=== PATIENT | male | born 1965 | race Hispanic/Latino ===

== ENCOUNTER 2017-11-10 21:41 | Inpatient (IN) | payer MEDICARE, MEDICAID ==
[2017-11-10 21:49] VITALS: O2SAT 98
[2017-11-10] MEDS ORDERED: Sodium Chloride 0.9% 1,000 ML IV ONE (22:48)
--- NOTE | 2017-11-10 22:48 | C.PDOC ---
History Of Present Illness 57 year old male, with history of mechanical aortic valve, presents to the ED for psychiatric evaluation. Patient states he has been feeling very anxious, stressed and depressed for the past few days. He reports being unable to eat or sleep properly. Patient was evaluated at [facility] two days ago , but did not stay for further evaluation. Patient was evaluated by his PMD, Dr. Landers, yesterday and today and was advised to present to the ED for evaluation of possible dehydration. Patient denies suicidal/homicidal ideation and drug use at this time. Patient states he has been noncompliant with Warfarin for "months." Time Seen by Provider: 11/10/17 22:27 Chief Complaint (Nursing): Psychiatric Evaluation History Per: Patient History/Exam Limitations: no limitations Onset/Duration Of Symptoms: Days Current Symptoms Are (Timing): Still Present Suicide/Self Injury Attempted (Context): None Modifying Factor(s): None Associated Symptoms: Anxiety, Depression. denies: Suicidal Thoughts, Suicidal Plan Involuntary Hold By: None Recent travel outside of the [place]: No Additional History Per: Patient Past Medical History Reviewed: Historical Data, Nursing Documentation, Vital Signs Vital Signs: Last Vital Signs Temp 98.5 F 11/11/17 01:00 Pulse 85 11/11/17 01:00 Resp 18 11/11/17 02:16 BP 126/79 11/11/17 01:00 Pulse Ox 98 11/11/17 06:50 - Medical History PMH: Denies: Diabetes, Hepatitis, HIV, HTN, Seizures, Sexually Transmitted Disease Surgical History: No Surg Hx Family History: States: Unknown Family Hx - Social History Hx Alcohol Use: No Hx Substance Use: Yes Review Of Systems Psych: Positive for: Anxiety, Depression. Negative for: Suicidal ideation Physical Exam - Physical Exam Appears: Non-toxic, No Acute Distress Skin: Warm, Dry, Other (facial erythema ) Head: Atraumatic, Normacephalic Eye(s): bilateral: Normal Inspection Oral Mucosa: Dry Neck: Supple Chest: Symmetrical, No Deformity, No Tenderness, Other (clicking of mechanical aortic valve noted ) Cardiovascular: Rhythm Regular, No Murmur Respiratory: Normal Breath Sounds, No Rales, No Rhonchi, No Wheezing Gastrointestinal/Abdominal: Soft, No Tenderness, No Guarding, No Rebound Extremity: Normal ROM, Capillary Refill (less than 2 seconds ) Neurological/Psych: Oriented x3, No Normal Speech (rapid, pressured), Normal Cognition ED Course And Treatment - Laboratory Results Result Diagrams: 11/10/17 23:13 11/10/17 23:13 O2 Sat by Pulse Oximetry: 98 (on RA) Pulse Ox Interpretation: Normal Medical Decision Making Medical Decision Making: Progress: Bloodwork, urinalysis ordered and reviewed. Patient evaluated by metal worker. IV Fluids administered. pt is medically stable for psychiatric evaluation. Disposition Discussed With DrVictoria: Kaylen Hawk - Disposition Disposition: HOSPITALIZED Disposition Time: 00:56 Condition: STABLE - POA Present On Arrival: None - Clinical Impression Clinical Impression: Benzodiazepine withdrawal with delirium, Opioid use disorder, severe, dependence - PA / DRUM WORKER / Resident Statement MD/DO has reviewed & agrees with the documentation as recorded. - Scribe Statement The provider has reviewed the documentation as recorded by the Scribe (Melissa Mauricio) All medical record entries made by the Scribe were at my direction and personally dictated by me. I have reviewed the chart and agree that the record accurately reflects my personal performance of the history, physical exam, medical decision making, and the department course for this patient. I have also personally directed, reviewed, and agree with the discharge instructions and disposition.
[2017-11-10 23:17] LABS: BASO # 0.1 K/uL (0.0-0.2); BASO % 1.2 % (0.0-2.0); EOS # 0.2 K/uL (0.0-0.7); EOS % 2.1 % (0.0-4.0); HEMOGLOBIN 14.1 g/dL (12.0-18.0); LYMPH # 3.2 K/uL (1.0-4.3); LYMPH % 41.7 % (20.0-40.0); MEAN CELL VOLUME 85.2 fL (80.0-94.0); MEAN CORPUSCULAR HEMOGLOBIN 28.5 pg (27.0-31.0); MEAN CORPUSCULAR HGB CONC 33.5 g/dL (33.0-37.0); MONO # 0.6 K/uL (0.0-0.8); MONO % 8.4 % (0.0-10.0); NEUT # 3.5 K/uL (1.8-7.0); NEUT % 46.6 % (50.0-75.0); NRBC % 0.1 % (0.0-2.0); RBC 4.94 Mil/uL (4.40-5.90); RED CELL DISTRIBUTION WIDTH 14.7 % (11.5-14.5); WHITE BLOOD COUNT 7.6 K/uL (4.8-10.8)
[2017-11-10 23:18] LABS: URINE BILIRUBIN NEGATIVE (NEGATIVE); URINE BLOOD NEGATIVE (NEGATIVE); URINE CLARITY Clear (Clear); URINE COLOR Yellow (YELLOW); URINE GLUCOSE (UA) NORMAL (Normal); URINE LEUKOCYTE ESTERASE NEG Leu/uL (Negative); URINE NITRATE NEGATIVE (NEGATIVE); URINE PROTEIN NEGATIVE (NEGATIVE)
[2017-11-10 23:28] LABS: ALB/GLOB RATIO 1.2 (1.0-2.1); ALBUMIN 4.5 g/dL (3.5-5.0); ALT/SGPT 26 U/L (21-72); AST/SGOT 27 U/L (17-59); BLOOD UREA NITROGEN 17 mg/dL (9-20); CALCIUM 9.4 mg/dl (8.6-10.4); GFR AFRICAN-AMERICAN > 60; GFR NON-AFRICAN AMERICAN > 60
[2017-11-10 23:33] LABS: BARBITURATES, UR NEGATIVE (NEGATIVE); BENZODIAZEPINES, UR POSITIVE (NEGATIVE); OPIATES, UR NEGATIVE (NEGATIVE); PHENCYCLIDINE, UR NEGATIVE (NEGATIVE)
--- NOTE | 2017-11-11 02:06 | PCM.BM ---
<Kwame Gibson - Last Filed: 11/11/17 02:03> Treatment Plan Problems - Problems identified on initial assessmt DEPRESSION Date Initiated: 11/11/17 Time Initiated: 01:35 Assessment reference: NA Status: Active SUICIDAL IDEATION Date Initiated: 11/11/17 Time Initiated: 01:35 Assessment reference: NA Status: Active SUBSTANCE ABUSE Date Initiated: 11/11/17 Time Initiated: 01:35 Assessment reference: NA Status: Active Treatment assets and liabiliti Patient Assests: adapts well, cooperative, self-reliant, ADL independent, good support system, negotiates basic needs, cognitively intact Patient Liabilities: live alone, financial problems, substance abuse, medical problems, legal issue - Milieu Protocol Maintain good personal hygiene: daily Encourage regular showers, daily Remind patient to perform daily oral care, daily Assist patient to perform ADL's Maintain personal safety: every shift Educate patient to report safety concerns to staff, every shift Monitor environment for contraband/sharps Medication safety: Monitor for expected outcome, potential side effects: every shift, Assess barriers to learning: every shift, Assess readiness for medication education: every shift <Montserrat Dawson - Last Filed: 11/11/17 10:48> Family Contact Family involvement: Famliy/SO not involved - Goals for Treatment Patient goals for treatment: "I need help with my withdrawals." Discharge/Continuing Care - Education Needs Education Needs: Patient Medication, Patient Coping Skills, Patient Placement options, Patient Community resources - Discharge Discharge Criteria: Tolerates medication w/o severe side effects, No longer exhibiting s/s of withdrawal, Reduction of target symptoms Discharge to:: Home - Treatment Team Participation Discussed with Family/SO: No Was Patient/Family/SO present at Treatment Team Meeting: Yes <Kaylen Hawk - Last Filed: 11/11/17 11:31> - Diagnosis (1) Major depressive disorder, recurrent episode, severe Status: Acute Interventions: 11/11/17 11:30 * Assess/adjust medications daily and /or as needed * See patient on an individual basis 7x/week to assess symptoms of depression * Monitor for side effects & effectiveness of medications * (2) Sedative, hypnotic or anxiolytic use disorder, severe, dependence Status: Acute Interventions: 11/11/17 11:30 * Assess 7x/week regarding cravings * Educate regarding risks, benefits, side effects and alternatives of medications * Use Motivational Interviewing for abstinence * Use CBT for relapse prevention * Encourage medication assisted treatment * (3) Opioid use disorder, severe, dependence Status: Acute Interventions: 11/11/17 11:30 * Assess 7x/week regarding severity of withdrawal * Educate regarding risks, benefits, side effects and alternatives of medications * Use Motivational Interviewing for abstinence * Use CBT for relapse prevention * Medication management for withdrawal symptoms * Encourage medication assisted treatment *
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
[2017-11-11] MEDS: Venlafaxine 37.5 mg ER Cap PO SCH (13:00)
[2017-11-12] MEDS: Venlafaxine 37.5 mg ER Cap PO SCH (09:34)
[2017-11-12] MEDS: Hydrocortisone 1% Cream (30 GM) TOP PRN (18:06)
--- NOTE | 2017-11-12 19:59 | PCM.PYCHPN ---
Psychiatric Progress Note - Psychiatric Progress Note Patient seen today, length of contact: 15 minutes Patient Chief Complaint: I'm not feeling good. I'm feeling anxiety and some withdrawal symptoms. Problems Identified/Issues Discussed: Patient seen, chart reviewed, case discussed with the staff. Issues related to illness and treatment were discussed with the patient. Reported compliant with treatment with no adverse affects. Tolerating treatment very well. Better sleep. Patient reported not feeling good. Frequently asking for more methadone and Klonopin. At the time of evaluation, patient was awake alert oriented 3, had no delusions , no auditory or visual hallucinations, no suicidal ideations or homicidal ideations. Aftercare discussed with the patient. Medical Problems: Coronary artery disease Diagnostic Results: Reviewed DSM 5 Symptoms Update: Some improvement with treatment Medication Change: No Medical Record Reviewed: Yes Mental Status Examination - Cognitive Function Orientation: Person, Place, Situation, Time Memory: Intact Attention: WNL Concentration: WNL Association: [facility] Fund of Knowledge: [facility] Decription of patient's judgement and insights: Fair - Mood Mood: Anxious - Affect Affect: Other (Appropriate) - Speech Speech: Appropriate - Formal Thought Process Formal Thought Process: No Impairment Psychotic Thoughts and Behaviors: None - Suicidal Ideation Suicidal Ideation: No - Homicidal Ideation Homicidal Ideation: No Goal/Treatment Plan - Goal/Treatment Plan Need for Continued Stay: Remain at risks for inpatient hospitalization, Discharge may exacerbated symptoms, Severe functional impairment Progress Toward Problem(s) and Goals/Treatment Plan: Patient education Supportive therapy Continue treatment as before CBT for relapse prevention M I for abstinence Patient wants to go to [facility] after discharge from the hospital for follow-up care Estimated Date of D/C: 11/18/17 - Smoking Cessation Smoking Cessation Initiated: Yes
[2017-11-13] MEDS: Venlafaxine 75 mg ER Cap PO SCH (10:03)
[2017-11-13] MEDS: Hydrocortisone 1% Cream (30 GM) TOP PRN ×2 (10:07→17:29)
--- NOTE | 2017-11-13 19:22 | PCM.PYCHPN ---
Psychiatric Progress Note - Psychiatric Progress Note Patient seen today, length of contact: 15 minutes Patient Chief Complaint: I'm not feeling good. I'm feeling anxiety, can you increase my Klonopin dose. Problems Identified/Issues Discussed: Patient seen, chart reviewed, case discussed with the staff. Issues related to illness and treatment were discussed with the patient. Reported compliant with treatment with no adverse affects. Tolerating treatment very well. Better sleep. Patient reported not feeling good. Frequently asking for more methadone and Klonopin. Again patient was asking to get more Klonopin and other medications. It appears that patient has tendency of drug-seeking behavior. At the time of evaluation, patient was awake alert oriented 3, had no delusions , no auditory or visual hallucinations, no suicidal ideations or homicidal ideations. Aftercare discussed with the patient. Medical Problems: Coronary artery disease Diagnostic Results: Reviewed DSM 5 Symptoms Update: Some improvement with treatment Medication Change: No Medical Record Reviewed: Yes Mental Status Examination - Cognitive Function Orientation: Person, Place, Situation, Time Memory: Intact Attention: WNL Concentration: WNL Association: WNL Fund of Knowledge: [facility] Decription of patient's judgement and insights: Fair - Mood Mood: Anxious - Affect Affect: Other (He appears calm.) - Speech Speech: Appropriate - Formal Thought Process Formal Thought Process: No Impairment Psychotic Thoughts and Behaviors: None - Suicidal Ideation Suicidal Ideation: No - Homicidal Ideation Homicidal Ideation: No Goal/Treatment Plan - Goal/Treatment Plan Need for Continued Stay: Remain at risks for inpatient hospitalization, Discharge may exacerbated symptoms, Severe functional impairment Progress Toward Problem(s) and Goals/Treatment Plan: Patient education Supportive therapy Continue treatment as before CBT for relapse prevention M I for abstinence Patient wants to go to [facility] after discharge from the hospital for follow-up care Estimated Date of D/C: 11/18/17 - Smoking Cessation Smoking Cessation Initiated: Yes
[2017-11-14] MEDS ORDERED: Influenza Vaccine 60 mcg/0.5 mL SYR (4YR UP) IM ONE (10:00)
[2017-11-14] MEDS ORDERED: Venlafaxine 150 mg ER Cap PO SCH (10:00)
[2017-11-14] MEDS: Venlafaxine 75 mg ER Cap PO SCH (10:02)
[2017-11-14] MEDS ORDERED: Pneumococcal 23-Valent Vaccine IM ONE (10:20)
[2017-11-14] MEDS: Hydrocortisone 1% Cream (30 GM) TOP PRN (21:03)
[2017-11-15] MEDS: Venlafaxine 150 mg ER Cap PO SCH (09:32)
--- NOTE | 2017-11-15 23:37 | PCM.PYCHPN ---
Psychiatric Progress Note - Psychiatric Progress Note Patient seen today, length of contact: 15 minutes Patient Chief Complaint: "I am very anxious" Problems Identified/Issues Discussed: The pt is seen, chart reviewed, case discussed with staff. The pt is compliant with medications and reports no side-effects. Symptoms are improving but needs more time to stabilize. After care discussed, support and psychoeducation given. Meds adjusted Medication Change: Yes Medical Record Reviewed: Yes Mental Status Examination - Cognitive Function Orientation: Person, Place, Situation, Time Memory: Intact Attention: WNL Concentration: WNL Association: WNL Fund of Knowledge: WNL - Mood Mood: Anxious - Affect Affect: Other (He appears calm.) - Speech Speech: Appropriate - Formal Thought Process Formal Thought Process: No Impairment - Suicidal Ideation Suicidal Ideation: No - Homicidal Ideation Homicidal Ideation: No Goal/Treatment Plan - Goal/Treatment Plan Need for Continued Stay: Remain at risks for inpatient hospitalization, Discharge may exacerbated symptoms, Severe functional impairment Progress Toward Problem(s) and Goals/Treatment Plan: Effexor XR - target dose 225 mg or 300 mg Gabapentin 300 mg tid - to be increased Klonopin 0.5 mg TID for now - he understood ALL the risks and contracted to NOT increase and eventually stop in few months, when psychotherapy and other meds start work better. Methadone detox when he starts to withdraw Prn medications All risks, benefits and alternatives of medications, including no medications, discussed and the patient understood and agreed. Attend groups and activities Individual therapy Psychoeducation and support Encourage compliance with meds and after care Refer to outpatient program Teach healthy lifestyle methods, i.e. diet, exercise, meditation Smoking cessation and patch Estimated Date of D/C: 11/18/17
--- NOTE | 2017-11-15 23:42 | PCM.PYCHPN ---
Psychiatric Progress Note - Psychiatric Progress Note Patient seen today, length of contact: 19 min Patient Chief Complaint: "I really need more klonopin" Problems Identified/Issues Discussed: The pt is seen, chart reviewed, case discussed with staff. Support given, CBT and [place] used briefly No new symptoms reported, improving slowly and needs more time However, he is fixated on klonopin and minimizes benzo risks No SEs from medications, risks discussed. After care discussed Medication Change: Yes Medical Record Reviewed: Yes Mental Status Examination - Cognitive Function Orientation: Person, Place, Situation, Time Memory: Intact Attention: WNL Concentration: WNL Association: [facility]N Fund of Knowledge: [facility] - Mood Mood: Anxious - Affect Affect: Other (He appears calm.) - Speech Speech: Appropriate - Formal Thought Process Formal Thought Process: No Impairment - Suicidal Ideation Suicidal Ideation: No - Homicidal Ideation Homicidal Ideation: No Goal/Treatment Plan - Goal/Treatment Plan Need for Continued Stay: Remain at risks for inpatient hospitalization, Discharge may exacerbated symptoms, Severe functional impairment Progress Toward Problem(s) and Goals/Treatment Plan: Effexor XR - target dose 225 mg or 300 mg Gabapentin 400 mg now Klonopin 1 mg BID for now - he understood ALL the risks. Methadone detox when he starts to withdraw Prn medications All risks, benefits and alternatives of medications, including no medications, discussed and the patient understood and agreed. Attend groups and activities Individual therapy Psychoeducation and support Encourage compliance with meds and after care Refer to outpatient program Teach healthy lifestyle methods, i.e. diet, exercise, meditation Smoking cessation and patch Estimated Date of D/C: 11/18/17
[2017-11-16] MEDS: Venlafaxine 150 mg ER Cap PO SCH (09:08)
[2017-11-16] MEDS ORDERED: Venlafaxine 37.5 mg ER Cap PO SCH (10:00)
--- NOTE | 2017-11-16 12:58 | PCM.PYCHPN ---
Psychiatric Progress Note - Psychiatric Progress Note Patient seen today, length of contact: 17 min Patient Chief Complaint: "I was hoping to get more meds" Problems Identified/Issues Discussed: The pt is seen, chart reviewed, case discussed with staff. Support given, CBT and [place] used briefly again but he is resistant and doesn't hear any rationale contrary to his beliefs. No new symptoms reported, improving slowly and needs more time. He is pleased despite not getting 3 klonpins No SEs from medications, risks discussed. After care discussed Medication Change: Yes (effx xr increased) Medical Record Reviewed: Yes Mental Status Examination - Cognitive Function Orientation: Person, Place, Situation, Time Memory: Intact Attention: WNL Concentration: WNL Association: WN Fund of Knowledge: WNL - Mood Mood: Anxious - Affect Affect: Other (He appears calm.) - Speech Speech: Appropriate - Formal Thought Process Formal Thought Process: No Impairment - Suicidal Ideation Suicidal Ideation: No - Homicidal Ideation Homicidal Ideation: No Goal/Treatment Plan - Goal/Treatment Plan Need for Continued Stay: Remain at risks for inpatient hospitalization, Discharge may exacerbated symptoms, Severe functional impairment Progress Toward Problem(s) and Goals/Treatment Plan: Effexor XR - 225 mg now Gabapentin 400 mg now Klonopin 1 mg BID for now - he understood ALL the risks. Methadone detox when he starts to withdraw Prn medications All risks, benefits and alternatives of medications, including no medications, discussed and the patient understood and agreed. Attend groups and activities Individual therapy Psychoeducation and support Encourage compliance with meds and after care Refer to outpatient program Teach healthy lifestyle methods, i.e. diet, exercise, meditation Smoking cessation and patch Estimated Date of D/C: 11/18/17
[2017-11-17] MEDS: Venlafaxine 150 mg ER Cap PO SCH (09:04)
[2017-11-17] MEDS: Venlafaxine 75 mg ER Cap PO SCH (09:05)
--- NOTE | 2017-11-17 13:51 | PCM.PYCHPN ---
Psychiatric Progress Note - Psychiatric Progress Note Patient seen today, length of contact: 18 min Patient Chief Complaint: "Everything's okay" Problems Identified/Issues Discussed: The pt is seen, chart reviewed, case discussed with staff. Support given, CBT and [place] used briefly again Patient states that he is overall feeling okay and slept well last night. However he reports feeling quite anxious about his upcoming discharge and the interim period before he is able to establish long-term care at the methadone clinic. His concerns were addressed and patient expressed his understanding. No SEs from medications, risks discussed. After care discussed Medication Change: Yes (psych changes daily) Medical Record Reviewed: Yes Mental Status Examination - Cognitive Function Orientation: Person, Place, Situation, Time Memory: Intact Attention: WNL Concentration: WNL Association: WNL Fund of Knowledge: WNL - Mood Mood: Anxious - Affect Affect: Other (He appears calm.) - Speech Speech: Appropriate - Formal Thought Process Formal Thought Process: No Impairment - Suicidal Ideation Suicidal Ideation: No - Homicidal Ideation Homicidal Ideation: No Goal/Treatment Plan - Goal/Treatment Plan Need for Continued Stay: Remain at risks for inpatient hospitalization, Discharge may exacerbated symptoms, Severe functional impairment Progress Toward Problem(s) and Goals/Treatment Plan: Effexor XR - 225 mg now Gabapentin 400 mg now Klonopin 1 mg BID for now - he understood ALL the risks. Methadone detox when he starts to withdraw Prn medications All risks, benefits and alternatives of medications, including no medications, discussed and the patient understood and agreed. Attend groups and activities Individual therapy Psychoeducation and support Encourage compliance with meds and after care Refer to outpatient program Teach healthy lifestyle methods, i.e. diet, exercise, meditation Smoking cessation and patch Estimated Date of D/C: 11/18/17 - Smoking Cessation Smoking Cessation Initiated: Yes
[2017-11-18 06:28] VITALS: BP 117/80; PULSE 58; RESP 19; TEMP 97.6
[2017-11-18] MEDS: Venlafaxine 75 mg ER Cap PO SCH (09:01)
[2017-11-18] MEDS: Venlafaxine 150 mg ER Cap PO SCH (09:01)
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
== END 2017-11-18 11:15 | disposition home or self-care (01) | DRG 895 ==
LOC: C.ER 21:41 → C.5E 11-11 00:55
PROVIDERS: ADMIT Psychiatry & Neurology Psychiatry; ATTEND Psychiatry & Neurology Psychiatry
PROC: HZ2ZZZZ Detoxification Services for Substance Abuse Treatment (ICD-10-PCS; principal; 2017-11-11)
PROC: HZ56ZZZ Individual Psychotherapy for Substance Abuse Treatment, Psychoeducation (ICD-10-PCS; 2017-11-11)
PROC: HZ42ZZZ Group Counseling for Substance Abuse Treatment, Cognitive-Behavioral (ICD-10-PCS; 2017-11-11)
PROC: HZ59ZZZ Individual Psychotherapy for Substance Abuse Treatment, Supportive (ICD-10-PCS; 2017-11-11)
PROC: HZ52ZZZ Individual Psychotherapy for Substance Abuse Treatment, Cognitive-Behavioral (ICD-10-PCS; 2017-11-11)
PROC: HZ46ZZZ Group Counseling for Substance Abuse Treatment, Psychoeducation (ICD-10-PCS; 2017-11-11)
DX: F19.231 Other psychoactive substance dependence with withdrawal delirium (principal); R45.851 Suicidal ideations; F33.2 Major depressive disorder, recurrent severe without psychotic features; F11.20 Opioid dependence, uncomplicated; E86.0 Dehydration; F41.1 Generalized anxiety disorder; F41.0 Panic disorder [episodic paroxysmal anxiety]; F43.10 Post-traumatic stress disorder, unspecified; F60.9 Personality disorder, unspecified; F17.210 Nicotine dependence, cigarettes, uncomplicated; I25.10 Atherosclerotic heart disease of native coronary artery without angina pectoris

== ENCOUNTER 2017-12-22 21:50 | Emergency (ER) | payer MEDICARE, OTHER ==
--- NOTE | 2017-12-22 22:12 | C.PDOC ---
History Of Present Illness Patient presents to the ER requesting a refill of his Rx after he missed his outpatient psych appointment today. Patient now reports feeling slightly anxious. Denies physical complaints at this time. Time Seen by Provider: 12/22/17 22:11 Chief Complaint (Nursing): Psychiatric Evaluation History Per: Patient History/Exam Limitations: no limitations Onset/Duration Of Symptoms: Hrs Current Symptoms Are (Timing): Still Present Suicide/Self Injury Attempted (Context): None Modifying Factor(s): None Severity: None Pain Scale Rating Of: 0 Associated Symptoms: denies: Depression, Suicidal Thoughts Involuntary Hold By: None Recent travel outside of the [place]: No Past Medical History Reviewed: Historical Data, Nursing Documentation, Vital Signs Vital Signs: Last Vital Signs Temp 98 F 12/23/17 03:07 Pulse 71 12/23/17 03:07 Resp 17 12/23/17 03:07 BP 139/85 12/23/17 03:07 Pulse Ox 99 12/23/17 03:07 - Medical History PMH: Anxiety, Asthma (non compliant with albuterol hfa), Depression - [facility] DETOXIFICATION SERVICES FOR SUBSTANCE ABUSE TREATMENT (11/11/17) GROUP LIDAR ANALYST FOR SUBSTANCE ABUSE TREATMENT, PSYCHOEDUCATION (11/11/17) GROUP LIDAR ANALYST FOR SUBSTANCE ABUSE, COGNITIVE BEHAVIORAL (11/11/17) INDIV PSYCHOTHERAPY FOR SUBSTANCE ABUSE TREATMENT, SUPPORT (11/11/17) INDIV PSYCHOTHERAPY FOR SUBSTANCE ABUSE, COGNITIV BEHAVIORAL (11/11/17) INDIV PSYCHOTHERAPY FOR SUBSTANCE ABUSE, PSYCHOEDUCATION (11/11/17) Family History: States: No Known Family Hx - Social History Hx Alcohol Use: No Hx Substance Use: Yes (methadone) - Immunization History Hx Tetanus Toxoid Vaccination: No Hx Influenza Vaccination: No Hx Pneumococcal Vaccination: No Review Of Systems Constitutional: Negative for: Fever, Chills Gastrointestinal: Negative for: Nausea, Vomiting, Diarrhea Physical Exam - Physical Exam Appears: Non-toxic Skin: Warm, Dry Head: Normacephalic Oral Mucosa: Moist Chest: Symmetrical, No Tenderness Cardiovascular: Rhythm Regular Respiratory: No Rales, No Rhonchi, No Wheezing Gastrointestinal/Abdominal: Soft, No Tenderness Neurological/Psych: Oriented x3 ED Course And Treatment - Laboratory Results Result Diagrams: 12/22/17 22:51 12/22/17 22:51 O2 Sat by Pulse Oximetry: 96 (Room air) Pulse Ox Interpretation: Normal Progress Note: Blood work and urinalysis ordered. Crisis notified. Pt was cleared for discharge by dr Velasco Disposition Counseled Patient/Family Regarding: Studies Performed, Diagnosis, Need For Followup - Disposition Disposition: HOME/ ROUTINE Disposition Time: 22:11 Condition: FAIR Additional Instructions: Do follow up with [facility] [address] [place] [id number] Instructions: Anxiety, Adult (DC) Forms: [facility] (Bengali) - Clinical Impression Clinical Impression: Anxiety - Scribe Statement The provider has reviewed the documentation as recorded by the Scribe Nelson Stevens All medical record entries made by the Scribe were at my direction and personally dictated by me. I have reviewed the chart and agree that the record accurately reflects my personal performance of the history, physical exam, medical decision making, and the department course for this patient. I have also personally directed, reviewed, and agree with the discharge instructions and disposition.
[2017-12-22 22:54] LABS: BASO # 0.1 K/uL (0.0-0.2); BASO % 1.7 % (0.0-2.0); EOS # 0.1 K/uL (0.0-0.7); EOS % 1.9 % (0.0-4.0); HEMOGLOBIN 13.7 g/dL (12.0-18.0); LYMPH # 2.4 K/uL (1.0-4.3); LYMPH % 33.7 % (20.0-40.0); MEAN CELL VOLUME 86.8 fL (80.0-94.0); MEAN CORPUSCULAR HEMOGLOBIN 29.2 pg (27.0-31.0); MEAN CORPUSCULAR HGB CONC 33.6 g/dL (33.0-37.0); MEAN PLATELET VOLUME 8.6 fL (7.2-11.7); MONO # 0.5 K/uL (0.0-0.8); MONO % 6.9 % (0.0-10.0); NEUT % 55.8 % (50.0-75.0); NRBC % 0.1 % (0.0-2.0); RBC 4.7 Mil/uL (4.40-5.90); RED CELL DISTRIBUTION WIDTH 15.4 % (11.5-14.5); WHITE BLOOD COUNT 7.1 K/uL (4.8-10.8)
[2017-12-22 23:06] LABS: ALB/GLOB RATIO 1.1 (1.0-2.1); ALBUMIN 4.6 g/dL (3.5-5.0); ALT/SGPT 17 U/L (21-72); AST/SGOT 24 U/L (17-59); BLOOD UREA NITROGEN 10 mg/dL (9-20); CALCIUM 8.7 mg/dl (8.6-10.4); GFR AFRICAN-AMERICAN > 60; GFR NON-AFRICAN AMERICAN > 60
[2017-12-23 00:02] LABS: URINE BILIRUBIN NEGATIVE (NEGATIVE); URINE BLOOD NEGATIVE (NEGATIVE); URINE CLARITY Clear (Clear); URINE COLOR Yellow (YELLOW); URINE GLUCOSE (UA) NORMAL (Normal); URINE LEUKOCYTE ESTERASE NEG Leu/uL (Negative); URINE PROTEIN NEGATIVE (NEGATIVE); URINE UROBILINOGEN NORMAL mg/dL (0.2-1.0)
[2017-12-23 00:15] LABS: BARBITURATES, UR NEGATIVE (NEGATIVE); PHENCYCLIDINE, UR NEGATIVE (NEGATIVE)
[2017-12-23 00:17] LABS: BENZODIAZEPINES, UR POSITIVE (NEGATIVE); OPIATES, UR POSITIVE (NEGATIVE)
[2017-12-23 03:08] VITALS: BP 139/85; PULSE 71; RESP 17; TEMP 98
[2017-12-23 05:18] VITALS: O2SAT 96
== END 2017-12-23 05:32 | disposition home or self-care (01) ==
LOC: C.ER 21:50
DX: F41.9 Anxiety disorder, unspecified (principal)
CPT/HCPCS: 80053; 81001; 85025; 99285; G0480